=== PATIENT | male | born 2000 | race African-American/Black ===

== ENCOUNTER 2022-05-20 11:31 | Emergency (ER) | payer OTHER ==
[~2022-05-20] VITALS: Ht 177.8 cm; Wt 111.0 kg
[2022-05-20 11:41] VITALS: BP 146/79
[2022-05-20] MEDS ORDERED: NAPROXEN 250MG TABLET PO ONE (14:00)
[2022-05-20] MEDS ORDERED: NAPR-681 MT (15:00)
== END 2022-05-20 15:31 | disposition home or self-care (01) ==
LOC: ER 11:31
DX: S63.592A Other specified sprain of left wrist, initial encounter (principal); S90.121A Contusion of right lesser toe(s) without damage to nail, initial encounter; V00.131A Fall from skateboard, initial encounter; Y93.51 Activity, roller skating (inline) and skateboarding; Y92.488 Other paved roadways as the place of occurrence of the external cause
CPT/HCPCS: 73110; 73620; 99284